=== PATIENT | female | born 1970 | race Caucasian/White ===

== ENCOUNTER 2020-12-09 20:52 | Emergency (ER) | payer OTHER ==
[~2020-12-09] VITALS: Ht 160 cm; Wt 54.4 kg
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
[2020-12-09 21:00] VITALS: BP 130/93
[2020-12-09] MEDS ORDERED: TORADOL IV STA (21:07)
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
[2020-12-09] MEDS ORDERED: TORADOL ONE (21:14)
[2020-12-09] MEDS ORDERED: ADACEL VIAL IM ONE ×2 (21:15→21:30)
[2020-12-09 22:00] VITALS: BP 141/88
--- NOTE | 2020-12-09 22:09 | DIREP ---
PROCEDURE:CT HEAD WITHOUT CONTRAST TECHNIQUE:Axial cuts were obtained through the head, without intravenous contrast material. The images were viewed at brain and bone settings. COMPARISON:None. INDICATIONS:Pain/injury FINDINGS: VENTRICLES:Normal. CEREBRUM:Normal. CEREBELLUM:Normal. BRAINSTEM:Normal. SKULL:Normal. SINUSES:Right frontal scalp swelling with small laceration series 3, image 6. OTHER:Negative. CONCLUSION: 1. No intracranial abnormalities. 2. Right frontal scalp swelling with laceration. Dictated by: Bg Huitron M.D. on 12/09/2020 at 10:04 PM
--- NOTE | 2020-12-09 22:20 | DIREP ---
PROCEDURE:XRAY KNEE 2 VWS-RT COMPARISON:None. INDICATIONS:pain/injury FINDINGS: BONES:Normal. JOINTS:Moderate-sized joint effusion. SOFT TISSUES:Normal. OTHER:No additional findings. CONCLUSION:Moderate-sized joint effusion. No osseous abnormalities. Dictated by: Bg Huitron M.D. on 12/09/2020 at 10:18 PM
[2020-12-09] MEDS ORDERED: LIDOCAINE 1% VIAL ONE (22:33)
[2020-12-09] MEDS ORDERED: TRIPLE ANTIBIOTIC OINTMENT TP ONE (23:00)
[2020-12-09 23:04] VITALS: BP 152/76
== END 2020-12-09 23:25 | disposition home or self-care (01) ==
LOC: ER 20:52 → EDBD 20:52 → ER 23:25
DX: S01.111A Laceration without foreign body of right eyelid and periocular area, initial encounter (principal); S89.91XA Unspecified injury of right lower leg, initial encounter; F17.210 Nicotine dependence, cigarettes, uncomplicated; Z79.1 Long term (current) use of non-steroidal anti-inflammatories (NSAID); Y04.0XXA Assault by unarmed brawl or fight, initial encounter; Y93.89 Activity, other specified; Y92.488 Other paved roadways as the place of occurrence of the external cause; Y99.8 Other external cause status
CPT/HCPCS: 12011; 70450; 73560; 90471; 90715; 96374; 99285; J1885; J2001